=== PATIENT | female | born 1950 | race Caucasian/White ===

== ENCOUNTER 2020-02-17 20:40 | Inpatient (IN) ==
[2020-02-17] MEDS ORDERED: IOPAMIDOL 100 ML BOTTLE IV ONE (20:41)
[2020-02-17] MEDS ORDERED: 0.9 % SODIUM CHLORIDE 1,000 ML IV ONE ×2 (21:26→21:27)
[2020-02-17] MEDS ORDERED: ACETAMINOPHEN 325 MG TABLET PO ONE (21:26)
[2020-02-17 22:30] LABS: Prothrombin Time 13.7 sec (11.9-14.5)
[2020-02-17 22:31] LABS: Basophils # (Auto) 0.02 K/mcL (0.00-0.30); Basophils % (Auto) 0.1 % (0.0-2.0); Eosinophils # (Auto) 0.01 K/mcL (0.00-0.70); Eosinophils % (Auto) 0.1 % (0.0-7.0); Hematocrit 41.1 % (34.1-44.9); Hemoglobin 13.3 g/dL (11.2-15.7); Lymphocytes # (Auto) 0.67 K/mcL (1.50-4.80); Lymphocytes % (Auto) 3.4 % (15.5-49.0); Mean Cell Volume 89.5 fL (80.0-100.0); Mean Corpuscular HGB Conc 32.4 g/dL (31.0-36.0); Mean Platelet Volume 10.9 fL (7.4-10.4); Monocytes # (Auto) 0.86 K/mcL (0.10-0.90); Monocytes % (Auto) 4.4 % (1.0-12.0); Platelet Count 203 K/mcL (140-440); RBC 4.59 M/mcL (3.59-5.38); Red Cell Distribution Width 13.8 % (11.5-14.5); WBC 19.5 K/mcL (4.50-11.00)
[2020-02-17 22:36] LABS: ALT/SGPT 9 U/l (0-40); AST/SGOT 14 U/l (0-37); Albumin 3.7 gm/dL (3.2-5.2); Albumin/Globulin Ratio 1.1 (1.0-2.3); Alkaline Phosphatase 115 U/L (39-117); Bilirubin,Total 0.5 mg/dL (0.0-1.0); Blood Urea Nitrogen 22 mg/dl (8-23); C-Reactive Protein 8.6 mg/dl (0.0-0.8); Calcium 9.5 mg/dl (8.6-10.4); Carbon Dioxide 25 mmol/L (22-30); Chloride 102 mmol/L (96-108); Globulin 3.5 gm/dL (2.2-3.7); Glomerular Filtration Rate 94; Glucose 135 mg/dL (70-105)
[2020-02-17 22:37] LABS: Appearance,Urine CLOUDY; Bacteria,Urine MANY /hpf (0); Bilirubin,Urine NEG (NEG); Color,Urine YELLOW; Culture Indicated,Urine YES; Glucose,Urine (UA) NEGATIVE (NEG); Ketones,Urine NEG (NEG); Leukocyte Esterase,Urine 75 /uL (NEG); Nitrate,Urine NEG (NEG); Protein,Urine 100 mg/dL (NEG); Specific Gravity,Urine 1.015 (1.000-1.035); Urine Blood >=1.0 mg/dL (<0.03); Urine RBC > 182 /hpf (0-1); Urine Squamous Epithelial Cell 0 /hpf (0-4); Urine WBC 30 /hpf (0-4); Urobilinogen,Urine NEG (NEG)
[2020-02-17 22:42] LABS: Ferritin 306.5 ng/ml (30-400)
--- NOTE | 2020-02-17 23:20 | Emergency Department Note ---
Fever HPI - General Chief Complaint: Fever Stated Complaint: fever, urinary tract infection Time Seen by Provider: 02/17/20 21:25 Source: patient, EMS Mode of arrival: EMS Limitations: no limitations - History of Present Illness HPI Narrative: This patient was initially admitted with 2 visits by mistake and unfortunately I started documentation and orders on the first patient which was subsequently canceled. Please see that previous dictation/chart visit from 02/17/2020 for HPI, review of system, past histories including family medical and surgical, and initial management. Please note her 1 view portable chest x-ray is on that chart as well When reviewing this chart please read these 2 notes together as they represent only 1 visit - Related Data Home Medications Medication Instructions Recorded Confirmed Mucinex XR 12H 600 mg PO BID 08/28/17 08/28/17 acetaminophen 500 mg tablet 500 mg PO Q6H PRN 08/28/17 12/25/19 albuterol sulfate 90 mcg/actuation 2 inh INHALATION Q4H PRN g 08/28/17 02/17/20 aerosol inhaler clopidogrel 75 mg tablet 75 mg PO DAILY 08/28/17 02/17/20 docusate sodium 100 mg capsule 100 mg PO BID 08/28/17 02/17/20 gabapentin 800 mg tablet 800 mg PO TID 08/28/17 02/17/20 ondansetron HCl 4 mg tablet 4 mg PO Q4H PRN 08/28/17 08/28/17 tramadol 50 mg tablet 50 mg PO Q6H PRN 08/28/17 12/25/19 Saccharomyces boulardii 250 mg 250 mg PO DAILY cap 11/02/19 12/25/19 capsule cetirizine 10 mg tablet 5 mg PO QDAY PRN 11/02/19 12/25/19 cyanocobalamin (vitamin B-12) 1,000 mcg SUBLINGUAL PRN PRN 11/02/19 12/25/19 1,000 mcg sublingual tablet rosuvastatin 10 mg tablet 10 mg PO DAILY 11/02/19 02/17/20 trazodone 50 mg tablet 100 mg PO QHS 11/02/19 02/17/20 Aspirin [Lo-Dose Aspirin EC] 81 mg PO DAILY 12/25/19 02/17/20 Cholecalciferol (Vitamin D3) 20 mcg PO DAILY 12/25/19 12/25/19 [Vitamin D3] DULoxetine HCL [Cymbalta] 60 mg PO DAILY 12/25/19 12/25/19 Ipratropium 0.03% Nasal [place] 2 spray [place]ORGAN TID PRN 12/25/19 12/25/19 [Atrovent 0.03% Nasal [place]] Magnesium Hydroxide [Milk of 30 ml PO DAILYP PRN 12/25/19 12/25/19 Magnesia] Montelukast [Singular] 10 mg PO PRN PRN 12/25/19 12/25/19 levETIRAcetam [Keppra] 1,000 mg PO BID 12/25/19 02/17/20 Lansoprazole [Prevacid] 15 mg PO QDAY 02/17/20 02/17/20 busPIRone [Buspar] 5 mg PO DAILY 02/17/20 02/17/20 Allergies Allergy/AdvReac Type Severity Reaction Status Date / Time Penicillins Allergy Severe rash and Verified 02/17/20 20:49 hives levofloxacin [From Levaquin] Allergy Intermediate affected Verified 02/17/20 20:49 her muscles zinc AdvReac Mild sores in Verified 02/17/20 20:49 her mouth sulfa Allergy Unknown Unknown Uncoded 12/25/19 10:17 Fever PMH - Past Medical History Medical history: Reports: COPD, CVA (With hemiparesis), GERD, hyperlipidemia, h ypertension, seizures - Social History smoking status: Current every day smoker Physical Exam Limitations: no limitations Course Vital Signs Temperature 102.3 F H 02/17/20 20:45 Pulse Rate 120 H 02/17/20 20:45 Respiratory Rate 24 H 02/17/20 20:45 Blood Pressure 171/92 02/17/20 20:45 Pulse Oximetry (%) 90 02/17/20 20:45 Temperature 100.4 F H 02/18/20 00:16 Pulse Rate 83 02/18/20 00:16 Respiratory Rate 22 02/18/20 00:16 Blood Pressure 124/57 02/18/20 00:16 Pulse Oximetry (%) 100 02/18/20 00:16 Fever - Lab Data Lab results reviewed: Yes I reviewed the patient's lab results. Result diagrams: 02/17/20 21:21 02/17/20 21:21 Lab Results 02/17/20 02/17/2020 Range/Units 21:15 21:21 21:21 WBC 19.5 H (4.50-11.00) K/mcL RBC 4.59 (3.59-5.38) M/mcL Hgb 13.3 (11.2-15.7) g/dL Hct 41.1 (34.1-44.9) % MCV 89.5 (80.0-100.0) fL MCH 29.0 (26.0-34.0) pg MCHC 32.4 (31.0-36.0) g/dL RDW 13.8 (11.5-14.5) % Plt Count 203 (140-440) K/mcL MPV 10.9 H (7.4-10.4) fL Gran % 92.0 H (38.0-78.0) % Lymph % (Auto) 3.4 L (15.5-49.0) % [place] % (Auto) 4.4 (1.0-12.0) % Eos % (Auto) 0.1 (0.0-7.0) % Baso % (Auto) 0.1 (0.0-2.0) % Gran # 17.94 H (1.80-8.00) K/mcL Lymph # (Auto) 0.67 L (1.50-4.80) K/mcL [place] # (Auto) 0.86 (0.10-0.90) K/mcL Eos # (Auto) 0.01 (0.00-0.70) K/mcL Baso # (Auto) 0.02 (0.00-0.30) K/mcL PT (11.9-14.5) sec INR (0.9-1.1) D-Dimer (0.00-0.40) ug/ml VBG Lactic Acid (0.5-2.0) mmol/L Sodium 140 (133-145) mmol/L Potassium 3.9 (3.3-5.1) mmol/L Chloride 102 (96-108) mmol/L Carbon Dioxide 25 (22-30) mmol/L Anion Gap 13.0 (8-16) BUN 22 (8-23) mg/dl Creatinine 0.6 (0.6-1.1) mg/dl GFR Calculation 94 Glucose 135 H (70-105) mg/dL Calcium 9.5 (8.6-10.4) mg/dl Ferritin 306.5 (30-400) ng/ml Total Bilirubin 0.5 (0.0-1.0) mg/dL AST 14 (0-37) U/l ALT 9 (0-40) U/l Alkaline Phosphatase 115 (39-117) U/L Troponin T (0-0.03) ng/ml C-Reactive Protein 8.6 H (0.0-0.8) mg/dl Total Protein 7.2 (5.9-8.4) gm/dL Albumin 3.7 (3.2-5.2) gm/dL Globulin 3.5 (2.2-3.7) gm/dL Albumin/Globulin Ratio 1.1 (1.0-2.3) Lipase < 7 L (7-60) U/L Urine Color Yellow Urine Appearance Cloudy Urine pH 6.0 (5.0-9.0) Ur Specific [place] 1.015 (1.000-1.035) Urine Protein 100 A (NEG) mg/dL Urine Glucose (UA) Negative (NEG) mg/dL Urine Ketones Neg (NEG) mg/dL Urine Occult Blood >=1.0 A (<0.03) mg/dL Urine Nitrate Neg (NEG) Urine Bilirubin Neg (NEG) mg/dL Urine Urobilinogen Neg (NEG) mg/dL Ur Leukocyte Esterase 75 A (NEG) /uL Urine RBC > 182 H (0-1) /hpf Urine WBC 30 H (0-4) /hpf Ur Squamous Epith Cells 0 (0-4) /hpf Urine Bacteria Many A (0) /hpf Ur Culture Indicated? Yes 02/17/20 02/17/20 02/17/20 Range/Units 21:21 21:21 21:38 WBC (4.50-11.00) K/mcL RBC (3.59-5.38) M/mcL Hgb (11.2-15.7) g/dL Hct (34.1-44.9) % MCV (80.0-100.0) fL MCH (26.0-34.0) pg MCHC (31.0-36.0) g/dL RDW (11.5-14.5) % Plt Count (140-440) K/mcL MPV (7.4-10.4) fL Gran % (38.0-78.0) % Lymph % (Auto) (15.5-49.0) % [place] % (Auto) (1.0-12.0) % Eos % (Auto) (0.0-7.0) % Baso % (Auto) (0.0-2.0) % Gran # (1.80-8.00) K/mcL Lymph # (Auto) (1.50-4.80) K/mcL [place] # (Auto) (0.10-0.90) K/mcL Eos # (Auto) (0.00-0.70) K/mcL Baso # (Auto) (0.00-0.30) K/mcL PT (11.9-14.5) sec INR (0.9-1.1) D-Dimer 3.64 H (0.00-0.40) ug/ml VBG Lactic Acid 1.0 (0.5-2.0) mmol/L Sodium (133-145) mmol/L Potassium (3.3-5.1) mmol/L Chloride (96-108) mmol/L Carbon Dioxide (22-30) mmol/L Anion Gap (8-16) BUN (8-23) mg/dl Creatinine (0.6-1.1) mg/dl GFR Calculation Glucose (70-105) mg/dL Calcium (8.6-10.4) mg/dl Ferritin (30-400) ng/ml Total Bilirubin (0.0-1.0) mg/dL AST (0-37) U/l ALT (0-40) U/l Alkaline Phosphatase (39-117) U/L Troponin T < 0.01 (0-0.03) ng/ml C-Reactive Protein (0.0-0.8) mg/dl Total Protein (5.9-8.4) gm/dL Albumin (3.2-5.2) gm/dL Globulin (2.2-3.7) gm/dL Albumin/Globulin Ratio (1.0-2.3) Lipase (7-60) U/L Urine Color Urine Appearance Urine pH (5.0-9.0) Ur Specific [place] (1.000-1.035) Urine Protein (NEG) mg/dL Urine Glucose (UA) (NEG) mg/dL Urine Ketones (NEG) mg/dL Urine Occult Blood (<0.03) mg/dL Urine Nitrate (NEG) Urine Bilirubin (NEG) mg/dL Urine Urobilinogen (NEG) mg/dL Ur Leukocyte Esterase (NEG) /uL Urine RBC (0-1) /hpf Urine WBC (0-4) /hpf Ur Squamous Epith Cells (0-4) /hpf Urine Bacteria (0) /hpf Ur Culture Indicated? 02/17/20 Range/Units 21:38 WBC (4.50-11.00) K/mcL RBC (3.59-5.38) M/mcL Hgb (11.2-15.7) g/dL Hct (34.1-44.9) % MCV (80.0-100.0) fL MCH (26.0-34.0) pg MCHC (31.0-36.0) g/dL RDW (11.5-14.5) % Plt Count (140-440) K/mcL MPV (7.4-10.4) fL Gran % (38.0-78.0) % Lymph % (Auto) (15.5-49.0) % [place] % (Auto) (1.0-12.0) % Eos % (Auto) (0.0-7.0) % Baso % (Auto) (0.0-2.0) % Gran # (1.80-8.00) K/mcL Lymph # (Auto) (1.50-4.80) K/mcL [place] # (Auto) (0.10-0.90) K/mcL Eos # (Auto) (0.00-0.70) K/mcL Baso # (Auto) (0.00-0.30) K/mcL PT 13.7 (11.9-14.5) sec INR 1.0 (0.9-1.1) D-Dimer (0.00-0.40) ug/ml VBG Lactic Acid (0.5-2.0) mmol/L Sodium (133-145) mmol/L Potassium (3.3-5.1) mmol/L Chloride (96-108) mmol/L Carbon Dioxide (22-30) mmol/L Anion Gap (8-16) BUN (8-23) mg/dl Creatinine (0.6-1.1) mg/dl GFR Calculation Glucose (70-105) mg/dL Calcium (8.6-10.4) mg/dl Ferritin (30-400) ng/ml Total Bilirubin (0.0-1.0) mg/dL AST (0-37) U/l ALT (0-40) U/l Alkaline Phosphatase (39-117) U/L Troponin T (0-0.03) ng/ml C-Reactive Protein (0.0-0.8) mg/dl Total Protein (5.9-8.4) gm/dL Albumin (3.2-5.2) gm/dL Globulin (2.2-3.7) gm/dL Albumin/Globulin Ratio (1.0-2.3) Lipase (7-60) U/L Urine Color Urine Appearance Urine pH (5.0-9.0) Ur Specific [place] (1.000-1.035) Urine Protein (NEG) mg/dL Urine Glucose (UA) (NEG) mg/dL Urine Ketones (NEG) mg/dL Urine Occult Blood (<0.03) mg/dL Urine Nitrate (NEG) Urine Bilirubin (NEG) mg/dL Urine Urobilinogen (NEG) mg/dL Ur Leukocyte Esterase (NEG) /uL Urine RBC (0-1) /hpf Urine WBC (0-4) /hpf Ur Squamous Epith Cells (0-4) /hpf Urine Bacteria (0) /hpf Ur Culture Indicated? - Radiology Data Radiology results reviewed: Yes I reviewed the patient's radiology results. Chest x-ray shows no acute cardiopulmonary disease Disposition Pt seen by [facility] only: No Clinical Impression: Hypoxia, Kidney stone on right side UTI (urinary tract infection) Qualifiers: Urinary tract infection type: acute cystitis Hematuria presence: with hematuria Qualified Code(s): N30.01 - Acute cystitis with hematuria Summary: See other note for initial management and work-up. Laboratory shows elevated leukocytosis at 19.5. She also has evidence of severe urinary tract infection. Will start Rocephin because she is allergic to penici llins and levofloxacin as well as sulfa. Her mcc called to report that she had right lower quadrant pain earlier today; also she has had a fever. She had elevated d-dimer so CT scan of the chest abdomen and pelvis with contrast is ordered Chest abdomen and pelvis CT were unrevealing except for a 1.4 cm renal pelvis stone on the right-which is partially obstructing causing mild right h ydronephrosis. This does not really fit with her pain pattern but may account for some of the blood in her urine, and may or may not be related to her UTI We initially gave her 1 g of Rocephin for UTI but after discussion with hospitalist we will give her another gram. This does look like a complicated UTI. Discussed the case with Dr. Alejo, hospitalist. He agreed to accept the patient for further care and evaluation. I will write holding orders I briefly also discussed the results of her studies with the patient Disposition: Xfer As Inpt ([facility]) Condition: Fair Referrals: Tramaine Campbell DO [Primary Care Provider] -
[2020-02-17] MEDS ORDERED: cefTRIAXone 1 GM VIAL IV ONE (23:24)
[2020-02-18] MEDS ORDERED: cefTRIAXone 1 GM VIAL IV ONE (01:08)
[2020-02-18] MEDS ORDERED: ONDANSETRON 4 MG/2 ML VIAL IV PRN ×2 (01:13→08:09)
[2020-02-18] MEDS ORDERED: 0.9 % SODIUM CHLORIDE 1,000 ML IV SCH (01:15)
[2020-02-18] MEDS ORDERED: ACETAMINOPHEN 325 MG TABLET PO PRN (04:02)
[2020-02-18] MEDS ORDERED: BISACODYL 10 MG SUPP.RECT PR PRN (08:09)
[2020-02-18] MEDS ORDERED: ONDANSETRON 4 MG ODT TABLET SL PRN (08:09)
[2020-02-18] MEDS ORDERED: MAGNESIUM SULFATE 2 GM/50 ML BAG IV PRN (08:09)
[2020-02-18] MEDS ORDERED: POTASSIUM CHLORIDE 20 MEQ PACKET PO PRN (08:09)
[2020-02-18] MEDS ORDERED: POLYETHYLENE GLYCOL 3350 17 GM PACKET PO PRN (08:09)
[2020-02-18] MEDS ORDERED: MELATONIN 3 MG TABLET PO PRN (08:09)
--- NOTE | 2020-02-18 08:18 | Internal Med History&Physical ---
Medical - H&P: [facility] Patient information: Note initiated : 02/18/20 at 8:15 am Service Date, if different from initiated Date: [] Patient: Ema Lemos a 69 y/o F admitted on 02/18/20 for Fever, Urinary Tract Infection. Chief Complaint: [] Chief complaint: Fever and shortness of breath History of present illness: Ms. Lemos is a 69 year old F resident at [facility] with a history of COPD/seizure disorder/HTN/right MCA CVA who presents to the ER with symptoms of increasing weakness, fever, fatigue and dyspnea that has progressed over the last few days. Symptoms are associated with extreme weakness and exhaustion. With concerns of overall decline in general status she was referred to [facility] ER for evaluation. Initial work-up was consistent with severe sepsis along with pyuria. Patient started on antibiotic coverage. Patient has a history of recurrent urine tract infection multiple times a year. CT revealed nephrolithiasis. Hospital service was consulted after blood cultures were drawn At the time evaluation patient is fatigued lethargic was able to answer most of the questions. She denies abdominal pain/diarrhea endorses some nausea/weakness and dizziness. She further denies chest pain, joint pain, rash. She further denies changes in medications. Review of systems A 10 point review system was performed and is negative except for ones discussed above Medical - H&P: PMH Medical history: Convulsions (Chronic) Hyperlipemia (Chronic) Insomnia (Chronic) Incomplete bladder emptying (Chronic) Muscle weakness (generalized) (Chronic) Pain in left foot (Chronic) Sprain of calcaneofibular ligament of left ankle, subsequent encounter (Chronic) Sprain of tarsal ligament of left foot, subsequent encounter (Chronic) Nondisplaced transverse fracture of shaft of left fibula, sequela (Chronic) Urine retention (Chronic) Dysphagia (Chronic) Arrhythmia (Chronic) Ambulatory dysfunction (Chronic) Obesity (Chronic) Cervical spine pain (Chronic) Chronic insomnia (Chronic) Constipation (Chronic) GERD (gastroesophageal reflux disease) (Chronic) Hip pain, left (Chronic) Chronic low back pain (Chronic) HTN (hypertension) (Chronic) COPD (chronic obstructive pulmonary disease) (Chronic) Lumbar disc herniation with radiculopathy (Chronic) Hemiparesis (Chronic) Carotid stenosis, right (Chronic) History of right MCA stroke (Chronic) Lumbago (Chronic) Costochondritis (Chronic) IBS (irritable bowel syndrome) (Chronic) Stroke (Chronic) Neurogenic bladder (Chronic) Past Surgical History H/O shoulder surgery (Chronic) H/O: hysterectomy (Chronic) Hx of tonsillectomy (Chronic) Medical history: Reports: COPD, CVA (With hemiparesis), GERD, hyperlipidemia, hypertension, seizures Surgical history ED: Reports: carotid endarterectomy, cholecystectomy, hysterectomy, orthopedic, other (Shoulder), tonsillectomy - Social History smoking status: Current every day smoker Medical - H&P: Meds Home Medications Medication Instructions Recorded Confirmed Type clopidogrel 75 mg tablet 75 mg PO DAILY 08/28/17 02/17/20 History docusate sodium 100 mg capsule 100 mg PO BID 08/28/17 02/17/20 History gabapentin 800 mg tablet 800 mg PO TID 08/28/17 02/17/20 History ondansetron HCl 4 mg tablet 8 mg PO Q8HP PRN 08/28/17 02/18/20 History tramadol 50 mg tablet 50 mg PO BIDP PRN 08/28/17 02/18/20 History Saccharomyces boulardii 250 mg 250 mg PO DAILY cap 11/02/19 02/18/20 History capsule cetirizine 10 mg tablet 10 mg PO QDAY 11/02/19 02/18/20 History rosuvastatin 10 mg tablet 10 mg PO DAILY 11/02/19 02/17/20 History trazodone 50 mg tablet 50 mg PO QHS 11/02/19 02/18/20 History Aspirin [Lo-Dose Aspirin EC] 81 mg PO DAILY 12/25/19 02/17/20 History DULoxetine HCL [Cymbalta] 60 mg PO DAILY 12/25/19 02/18/20 History Magnesium Hydroxide [Milk of 30 ml PO BIDP PRN 12/25/19 02/18/20 History Magnesia] Montelukast [Singular] 10 mg PO DAILY 12/25/19 02/18/20 History levETIRAcetam [Keppra] 1,000 mg PO BID 12/25/19 02/17/20 History Lansoprazole [Prevacid] 15 mg PO QDAY 02/17/20 02/17/20 History busPIRone [Buspar] 5 mg PO DAILY 02/17/20 02/17/20 History Acetaminophen [Tylenol] 650 mg PO QID MDD 3000 02/18/20 02/18/20 History Acetaminophen/Diphenhydramine 1 tab PO HSP MDD 3000 02/18/20 02/18/20 History [Tylenol Pm] Albuterol Sulfate [Ventolin] 2 puff INH Q4HP PRN 02/18/20 02/18/20 History Albuterol Sulfate [Ventolin] 2.5 mg NEB Q4HP PRN 02/18/20 02/18/20 History Albuterol Sulfate [Ventolin] 2.5 mg NEB QID 02/18/20 02/18/20 History Bisacodyl [Dulcolax] 10 mg PO DAILYP PRN 02/18/20 02/18/20 History Bisacodyl [Dulcolax] 10 mg [place] DAILYP PRN 02/18/20 02/18/20 History Cranberry Fruit Concentrate 450 mg PO DAILY 02/18/20 02/18/20 History [Cranberry] Cyanocobalamin (Vitamin B-12) 1,000 mcg PO DAILY 02/18/20 02/18/20 History [Vitamin B-12] Loperamide [Imodium] 2 mg PO Q6HP PRN 02/18/20 02/18/20 History Mineral Oil [Mineral Oil Enema] 1 dose [place] DAILYP PRN 02/18/20 02/18/20 History Na Phos,M-B/Na Phos,Di-Ba [Fleet 118 ml [place] PRN PRN 02/18/20 02/18/20 History Enema Extra] Petrolatum,White [Petroleum Jelly] 1 applic TOPICAL TID 02/18/20 02/18/20 History Vitamin D3 1,000 unit PO DAILY 02/18/20 02/18/20 History Allergies Allergy/AdvReac Type Severity Reaction Status Date / Time Penicillins Allergy Mild rash and Verified 02/18/20 06:44 hives Sulfa (Sulfonamide Allergy Unknown Unknown Verified 02/18/20 06:44 Antibiotics) levofloxacin [From Levaquin] AdvReac Intermediate affected Verified 02/18/20 06:44 her muscles zinc AdvReac Mild sores in Verified 02/17/20 20:49 her mouth Medical - H&P: Exam - Constitutional Vitals: Temp Pulse Resp BP Pulse Ox 101.4 F H 111 H 24 H 167/98 94 02/18/20 04:53 02/18/20 04:26 02/18/20 04:23 02/18/20 04:23 02/18/20 05:50 General appearance: no acute distress, obese Exam: Head normocephalic Oral cavity dry No ear nose discharge stuttering speech with prior MCA CVA Neck lymphadenopathy Eye movement symmetrical S1-S2 occasionally irregular Nonlabored breathing Abdomen nondistended nontender Lower extremity no sinus clubbing Skin no suspicious lesion Psych anxious and lethargic Neuro consistent with prior neurological deficit from CVA, no acute changes Medical - H&P: Reslt - Labs CBC & Chem 7: 02/19/20 04:30 02/19/20 04:30 Labs: Short CBC 02/17/20 Range/Units 21:21 WBC 19.5 H (4.50-11.00) K/mcL Hgb 13.3 (11.2-15.7) g/dL Hct 41.1 (34.1-44.9) % Plt Count 203 (140-440) K/mcL BMP 02/17/20 21:21 Sodium 140 Potassium 3.9 Chloride 102 Carbon Dioxide 25 BUN 22 Creatinine 0.6 Glucose 135 H Calcium 9.5 Cardiac Enzymes 02/17/20 Range/Units 21:21 Troponin T < 0.01 (0-0.03) ng/ml Liver Function 02/17/20 Range/Units 21:21 Total Bilirubin 0.5 (0.0-1.0) mg/dL AST 14 (0-37) U/l ALT 9 (0-40) U/l Alkaline Phosphatase 115 (39-117) U/L Albumin 3.7 (3.2-5.2) gm/dL Urine 02/17/20 Range/Units 21:15 Urine Color Yellow Urine Appearance Cloudy Urine pH 6.0 (5.0-9.0) Ur Specific [place] 1.015 (1.000-1.035) Urine Protein 100 A (NEG) mg/dL Urine Glucose (UA) Negative (NEG) mg/dL Medical - H&P: A/P (1) Complicated UTI (urinary tract infection) Current visit: Yes Status: Acute * Complicated UTI-broad antibiotic coverage. De-escalate based on cultures * Sepsis with white count 19.5. Continue management guidelines. Vasopressors if indicated to maintain map goal * Nephrolithiasis 1.9 cm right pelvis. Urology consult * Hyperlipidemia continue statin * Seizure disorder continue gabapentin/Keppra * Anxiety disorder continue home dose BuSpar/duloxetine * Neuropathy restart home medications * History of CVA on Plavix/statin * History of COPD continue bronchodilators * Seasonal allergy disorder * Full code * Prophylaxis heparin Plan * Inpatient admission * Antibiotic coverage * Urology consult for nephrolithiasis as outpatient * Pancultures * Pre-existing medical condition management as above * PT OT nutrition support Medical - H&P: Qual - VTE Deep Vein Thrombosis/Pulmonary Embolism Present on Admission: No
[2020-02-18] MEDS: DOCUSATE SODIUM 100 MG CAPSULE PO SCH ×3 (09:15→20:40)
[2020-02-18] MEDS: HEPARIN 5,000 UNIT/ML VIAL SQ SCH ×2 (09:15→20:39)
[2020-02-18] MEDS: MULTIVIT,THER IRON,CA,FA & MIN 1 TABLET PO SCH (09:15)
[2020-02-18] MEDS: 0.9 % SODIUM CHLORIDE 1,000 ML IV SCH (09:16)
[2020-02-18] MEDS ORDERED: [UNRECOGNIZED DRUG - OTHER] PO PRN (09:34)
[2020-02-18] MEDS ORDERED: ALBUTEROL SULFATE 200 PUFF INHALER INH PRN (09:34)
[2020-02-18] MEDS ORDERED: DULCOLAX 10 MG PR PRN (09:34)
[2020-02-18] MEDS ORDERED: IPRATROPIUM 0.03% NASAL SPRAY BOTTLE 30ML NAS PRN (09:34)
[2020-02-18] MEDS ORDERED: COLACE 100 MG PO PRN (09:34)
[2020-02-18] MEDS ORDERED: NON FORMULARY MEDICATION 1 DOSE MISCELL (Docusate Sodium 100 MG) PO PRN (09:34)
[2020-02-18] MEDS ORDERED: NA PHOS DI BA PR PRN (09:34)
[2020-02-18] MEDS ORDERED: ALBUTEROL SULFATE 2.5 MG INH PRN (09:34)
[2020-02-18] MEDS ORDERED: ONDANSETRON HCL 8 MG PO PRN (09:34)
[2020-02-18] MEDS ORDERED: traMADol 50 MG TABLET PO PRN (09:34)
[2020-02-18] MEDS ORDERED: LOPERAMIDE 2 MG CAPSULE PO PRN (09:34)
[2020-02-18] MEDS ORDERED: NON FORMULARY MEDICATION 1 DOSE MISCELL (Acetaminophen 650 MG) PO PRN (09:34)
[2020-02-18] MEDS ORDERED: MAGNESIUM HYDROXIDE 30 ML ORAL.SUSP PO PRN (09:34)
[2020-02-18] MEDS ORDERED: LACTULOSE 20 GM/30 ML ORAL.SOL PO PRN (09:34)
[2020-02-18] MEDS ORDERED: [UNRECOGNIZED DRUG - OTHER] PR PRN (09:34)
[2020-02-18] MEDS ORDERED: NA PHOS M B PR PRN (09:34)
[2020-02-18] MEDS: busPIRone 5 MG TABLET PO SCH (10:02)
[2020-02-18] MEDS: DULoxetine 30 MG CAPSULE PO SCH (10:02)
[2020-02-18] MEDS: ASPIRIN 81 MG TAB.CHEW PO SCH (10:02)
[2020-02-18] MEDS: GABAPENTIN 400 MG CAPSULE PO SCH ×3 (10:02→20:40)
[2020-02-18] MEDS: PANTOPRAZOLE 40 MG TABLET PO SCH (10:02)
[2020-02-18] MEDS: levETIRAcetam 500 MG TABLET PO SCH ×2 (10:03→20:39)
[2020-02-18] MEDS ORDERED: MINERAL OIL 1 DOSE ENEMA PR PRN (10:15)
[2020-02-18] MEDS: LACTOBACILLUS 1 CAPSULE PO SCH (10:49)
--- NOTE | 2020-02-18 11:00 | Cat Scan Report ---
CLINICAL INFORMATION: Elevated d-dimer, right lower quadrant pain and fever COMPARISON: Abdomen CT 12/20/2006 TECHNIQUE: Enteric contrast was utilized. 80 cc of Isovue-[id number] were injected intravenously, and 50 seconds later 2.5 mm helical slices were obtained from the lung apices through the subtrochanteric regions of the femurs. Following reconstruction, 2.5 mm sagittal, coronal and axial reformatted images were processed and reviewed at multiple windows and levels. 7 mm MIP reconstructions were obtained through the lungs to optimize nodule detection.The exam was performed using radiation dose optimization techniques including, but not limited to, automated exposure control, adjustment of the mA and/or kV according to patient size and use of iterative reconstruction technique. FINDINGS: Pulmonary parenchymal windows show moderate centrilobular emphysema featuring chronic bronchitis (elevated lung volumes with wall thickening/ dilatation of the airways) with scattered bullae in the upper lobes. There are no infiltrates or nodules. Mild subsegmental atelectasis in both posterior lower lobes. The pleural spaces are normal. Mediastinal windows of the heart is normal in size moderately heavy fibrofatty calcific plaque in the coronary arteries. The thoracic aorta is normal diameter with mild diffuse intimal thickening. The pulmonary arteries are normal diameter and well-opacified no evidence of embolus. There is no adenopathy in the mediastinal hilar or axillary regions. A 4.5 cm well-circumscribed low-attenuation mass in the right thyroid lobe is identical to a cervical spine CT from 06/26/2011 and should be considered a benign adenoma. Abdominal images show the gallbladder is surgically absent. Moderate air within the intrahepatic and common hepatic ducts, compatible prior papillotomy is unchanged from 12/20/[address] The intrahepatic and extrahepatic ducts normal in caliber. The pancreas, both adrenal glands, spleen and aorta are normal. There is a 19 x 7 mm stone in the right renal pelvis and a 2 mm stone within a right calyx. Mild right hydronephrosis appreciated. Mild thickening of the transitional epithelium the right upper collecting system, slight right renal enlargement with inhomogeneous parenchyma and stranding of perinephric fat suggestive of pyelonephritis. In the left kidney, there is an 8 mm simple cyst laterally. Urinary bladder shows moderate diffuse wall thickening and inflammation in the adjacent fat. A Aburto catheter is properly positioned. A few tiny stones seen in the dependent urinary bladder base. Hysterectomy/oophorectomy changes noted. The large bowel, appendix, small bowel and stomach are grossly normal. There is a small periumbilical hernia containing only mesenteric fat. Bone windows show no focal osseous lesions. Moderate degenerative change both hips IMPRESSION: 1. No evidence of pulmonary embolus or other acute cardiopulmonary abnormality. Moderate centrilobular emphysema. 2. 19 mm stone in the right renal pelvis with mild hydronephrosis. 3 mm nonobstructing stone mid right renal calyx. Mildly enlarged, inhomogeneous right kidney with perinephric stranding transitional epithelial thickening is suggestive of pyelonephritis. 3. Moderate wall thickening and enhancement of the urinary bladder with inflammation in the pericystic soft tissues patible with cystitis. A few tiny stones layer dependently in the urinary bladder 4. Small umbilical hernia consists only of mesenteric fat. 5. 4.5 cm sharply circumscribed benign adenoma in the right thyroid lobe - stable since since a 06/26/[address] Interpreted and Authenticated by: Tramaine Santiago 02/18/20
[2020-02-18] MEDS ORDERED: ALBUTEROL SULFATE 2.5 MG INH SCH (13:00)
[2020-02-18] MEDS: ACETAMINOPHEN 325 MG TABLET PO PRN (13:54)
[2020-02-18] MEDS: 0.9 % SODIUM CHLORIDE 10 ML SYRINGE IV SCH ×2 (13:57→22:46)
[2020-02-18] MEDS: cefTRIAXone 2 GM in DEXTROSE 5% IN WATER 50 ML IV SCH (17:16)
[2020-02-18] MEDS: ACETAMINOPHEN 650 MG/65 ML BOTTLE IV PRN ×2 (17:21→19:02)
[2020-02-18] MEDS: traZODone HCL 50 MG TABLET PO SCH (20:40)
[2020-02-18] MEDS: SENNOSIDES/DOCUSATE SODIUM 1 TAB TABLET PO SCH (20:40)
[2020-02-18] MEDS: ATORVASTATIN 20 MG TABLET PO SCH (20:40)
[2020-02-19] MEDS: ACETAMINOPHEN 650 MG/65 ML BOTTLE IV PRN ×2 (04:28→17:48)
[2020-02-19] MEDS: 0.9 % SODIUM CHLORIDE 1,000 ML IV SCH ×2 (04:50→12:21)
[2020-02-19] MEDS: 0.9 % SODIUM CHLORIDE 10 ML SYRINGE IV SCH ×3 (05:44→21:05)
[2020-02-19 05:58] LABS: Hematocrit 36.2 % (34.1-44.9); Hemoglobin 11.1 g/dL (11.2-15.7); Mean Cell Volume 93.3 fL (80.0-100.0); Mean Corpuscular HGB Conc 30.7 g/dL (31.0-36.0); Mean Platelet Volume 11.1 fL (7.4-10.4); Platelet Count 159 K/mcL (140-440); RBC 3.88 M/mcL (3.59-5.38); WBC 11.9 K/mcL (4.50-11.00)
[2020-02-19 06:16] LABS: ALT/SGPT 9 U/l (0-40); AST/SGOT 13 U/l (0-37); Albumin 2.9 gm/dL (3.2-5.2); Albumin/Globulin Ratio 0.9 (1.0-2.3); Alkaline Phosphatase 92 U/L (39-117); Bilirubin,Direct 0.2 mg/dL (0.0-0.3); Bilirubin,Total 0.5 mg/dL (0.0-1.0); Blood Urea Nitrogen 18 mg/dl (8-23); Calcium 8.8 mg/dl (8.6-10.4); Carbon Dioxide 25 mmol/L (22-30); Chloride 101 mmol/L (96-108); Globulin 3.1 gm/dL (2.2-3.7); Glomerular Filtration Rate 89; Glucose 98 mg/dL (70-105); Lactate Dehydrogenase 215 U/L (94-250); Phosphorous 2.9 mg/dL (2.7-4.5); Triglycerides 88 mg/dl (<150); Uric Acid 2.1 mg/dL (2.5-8.0)
[2020-02-19 06:38] LABS: Band Neutrophils % 3 % (0-10); Basophils % (Manual) 1 % (0-2); Lymphocytes % 9 % (15-49); Monocytes % (Manual) 8 % (1-12); Platelet Estimate NORMAL (NORMAL); RBC Morphology NORMAL (NORMAL); Segmented Neutrophils % 79 % (38-78)
[2020-02-19] MEDS: PANTOPRAZOLE 40 MG TABLET PO SCH (07:12)
--- NOTE | 2020-02-19 07:20 | General Surgery Progress Note ---
Surgical - Auxillary Note - Subjective Patient Information: Note initiated : 02/19/20 at 7:19 am Service Date, if different from initiated Date: [] Patient: Ema Lemos a 69 y/o F admitted on 02/18/20 for Fever, Urinary Tract Infection. Chief Complaint: [] please see dictated note.
--- NOTE | 2020-02-19 07:42 | Consultation ---
DATE OF CONSULTATION: 02/19/2020 REQUESTING PHYSICIAN: Alli Baker M.D. HISTORY OF PRESENT ILLNESS: The patient is a 69-year-old lady who was transferred from the long term with increasing weakness, fever and fatigue. She was noted to have a urinary infection, and final identification of the organism is still pending. She has improved since admission. Her white count has decreased from 19.5 upon admission to 11.9 now. In reviewing her history, she did have a history of recurrent infections and it appears that she was on intermittent catheterization. She saw Dr. Reagan who examined her and felt like nothing else needed to be done. She continued to have hematuria and a cystoscopy was performed by a stack supervisor who found nothing wrong. She had a CT scan upon admission and was noted to have a large stone involving the right renal pelvis. This was a 19 x 7 mm stone. There was slight hydronephrosis. PLAN: I feel at this point that this may be the source of her infections and I do feel that she has pyelonephritis, but not an obstructive pyelonephritis. Therefore, I agree with Dr. Baker's plan to continue her with antibiotics. Upon discharge we can treat her stone. She can either follow up with Dr. Reagan or myself. ERIKA:christopher Job ID: [id number] Doc ID: [id number] Delfino JUAREZ
--- NOTE | 2020-02-19 07:59 | Internal Med Progress Note ---
Medical - PN: Subj Patient information: Note initiated : 02/19/20 at 7:58 am Service Date, if different from initiated Date: [] Patient: Ema Lemos a 69 y/o F admitted on 02/18/20 for Fever, Urinary Tract Infection. Chief Complaint: [] Interval history: Ms. Lemos is a 69 year old F resident at [facility] with a history of COPD/seizure disorder/HTN/right MCA CVA who presents to the ER with symptoms of increasing weakness, fever, fatigue and dyspnea that has progressed over the last few days. Symptoms are associated with extreme weakness and exhaustion. With concerns of overall decline in general status she was referred to [facility] ER for evaluation. Initial work-up was consistent with severe sepsis along with pyuria. Patient started on antibiotic coverage. Patient has a history of recurrent urine tract infection multiple times a year. CT revealed nephrolithiasis. Hospital service was consulted after blood cultures were drawn At the time evaluation patient is fatigued lethargic was able to answer most of the questions. She denies abdominal pain/diarrhea endorses some nausea/weakness and dizziness. She further denies chest pain, joint pain, rash. She further denies changes in medications. 02/18 - Constitutional Vitals: Vital Signs Temp Pulse Resp BP Pulse Ox 101.3 F H 94 H 22 135/76 93 02/19/20 05:13 02/19/20 04:00 02/19/20 04:00 02/19/20 04:00 02/19/20 04:00 Period Temp Pulse Resp BP Sys/Love Pulse Ox Last 24 Hr 100.0 F-102.5 F 62-97 16-22 96-135/42-76 92-98 Intake and Output 02/18/20 02/19/20 02/19/20 21:59 05:59 13:59 Intake Total 570 Output Total 100 500 Balance 470 -500 Weight 211 lb Intake & Output: Intake & Output 02/18/20 02/19/20 02/19/20 21:59 05:59 13:59 Intake Total 570 Output Total 100 500 Balance 470 -500 Weight 211 lb Intake: IV 130 Oral 440 Output: Urine Catheter Amount 500 Void Amount 100 Other: Meal Lunch Percent of Meal Consumed Refused Urine Appearance Clear Urine Color Light Renate General appearance: no acute distress Exam: Alert oriented Nonlabored breathing no anxiety No telemetry events Nondistended abdomen Medical - PN: Obj Da - Labs CBC & Chem 7: 02/19/20 04:30 02/19/20 04:30 Labs: Abnormal Lab Results 02/19/20 02/19/20 02/17/20 04:30 04:30 21:38 WBC 11.9 H Hgb 11.1 L MCHC 30.7 L MPV 11.1 H Gran % Lymph % (Auto) Gran # Lymph # (Auto) Seg Neutrophils % 79 H Lymphocytes % 9 L D-Dimer 3.64 H Glucose Uric Acid 2.1 L C-Reactive Protein Albumin 2.9 L Albumin/Globulin Ratio 0.9 L Lipase Urine Protein Urine Occult Blood Ur Leukocyte Esterase Urine RBC Urine WBC Urine Bacteria 02/17/20 02/17/20 02/17/20 21:21 21:21 21:15 WBC 19.5 H Hgb MCHC MPV 10.9 H Gran % 92.0 H Lymph % (Auto) 3.4 L Gran # 17.94 H Lymph # (Auto) 0.67 L Seg Neutrophils % Lymphocytes % D-Dimer Glucose 135 H Uric Acid C-Reactive Protein 8.6 H Albumin Albumin/Globulin Ratio Lipase < 7 L Urine Protein 100 A Urine Occult Blood >=1.0 A Ur Leukocyte Esterase 75 A Urine RBC > 182 H Urine WBC 30 H Urine Bacteria Many A Meds: Medications Acetaminophen (Tylenol) 650 mg PO Q4-6HP PRN; Protocol PRN Reason: Per Pain Protocol/Fever > 101 Last Admin: 02/18/20 13:54 Dose: 650 mg Documented by: Albuterol Sulfate (Ventolin) 2 puff INH Q4HP PRN PRN Reason: Shortness of Breath Aspirin (Aspirin) 81 mg PO DAILY [facility] Last Admin: 02/18/20 10:02 Dose: 81 mg Documented by: Atorvastatin Calcium (Lipitor) 20 mg PO HS [facility] Last Admin: 02/18/20 20:40 Dose: 20 mg Documented by: Bisacodyl (Dulcolax) 10 mg [place] Q2-3DAYS PRN PRN Reason: Constipation Buspirone HCl (Buspar) 5 mg PO DAILY [facility] Last Admin: 02/18/20 10:02 Dose: 5 mg Documented by: Cetirizine HCl (Zyrtec) 10 mg PO QDAY [facility] Clopidogrel Bisulfate (Plavix) 75 mg PO DAILY [facility] Cyanocobalamin (Vitamin B-12) 1,000 mcg PO DAILY [facility] Docusate Sodium (Colace) 100 mg PO BID [facility] Last Admin: 02/18/20 19:58 Dose: Not Given Documented by: Duloxetine HCl (Cymbalta) 60 mg PO DAILY [facility] Last Admin: 02/18/20 10:02 Dose: 60 mg Documented by: Gabapentin (Neurontin) 800 mg PO TID [facility] Last Admin: 02/18/20 20:40 Dose: 800 mg Documented by: Heparin Sodium (Porcine) (Heparin) 5,000 unit SQ Q12 [facility] Last Admin: 02/18/20 20:39 Dose: 5,000 unit Documented by: Sodium Chloride (Sodium Chloride 0.9%) 1,000 mls @ 50 mls/hr IV .Q20H [facility] Stop: 02/20/20 20:14 Last Admin: 02/19/20 04:50 Dose: Not Given Documented by: Acetaminophen (Ofirmev) 650 mg in 65 mls @ 130 mls/hr IV Q6HP PRN; Protocol PRN Reason: Per Pain Protocol/Fever > 101 Last Admin: 02/19/20 04:28 Dose: 130 mls/hr Documented by: Magnesium Sulfate (Magnesium Sulfate) 2 gm in 50 mls @ 50 mls/hr IV UD PRN PRN Reason: MG = or < 1.7 Ceftriaxone Sodium 2 gm/ (Dextrose) 50 mls @ 100 mls/hr IV Q24H [facility]; Protocol Last Admin: 02/18/20 17:16 Dose: 100 mls/hr Documented by: Ipratropium [place] (Atrovent 0.03% Nasal [place]) 2 spray MORGAN Q8HP PRN PRN Reason: Respiratory distress/rhinitis Iron Carb/Multivit/Orange/Folic Acid (Multivitamin W/Minerals) 1 tab PO DAILY [facility] Last Admin: 02/18/20 09:15 Dose: 1 tab Documented by: Lactobacillus Rhamnosus (Culturelle) 1 cap PO DAILY [facility] Last Admin: 02/18/20 10:49 Dose: 1 cap Documented by: Lactulose (Cephulac) 20 gm PO BIDP PRN PRN Reason: Constipation Levetiracetam (Keppra) 1,000 mg PO BID [facility] Last Admin: 02/18/20 20:39 Dose: 1,000 mg Documented by: Loperamide HCl (Imodium) 2 mg PO Q6HP PRN PRN Reason: Diarrhea Magnesium Hydroxide (Milk Of Magnesia) 30 ml PO BIDP PRN PRN Reason: Constipation Melatonin (Melatonin 3mg Tablet) 3 mg PO HSP PRN PRN Reason: Insomnia Mineral Oil (Mineral Oil Enema) 1 dose [place] DAILYP PRN PRN Reason: Constipation Montelukast Sodium (Singular) 10 mg PO DAILY [facility] Ondansetron HCl (Zofran) 4 mg IV Q4HP PRN PRN Reason: Nausea And Vomiting Ondansetron HCl (Zofran Odt) 4 mg SL Q4-6HP PRN; Protocol PRN Reason: Nausea And Vomiting Ondansetron HCl (Zofran) 4 mg IV Q4-6HP PRN; Protocol PRN Reason: Nausea And Vomiting Pantoprazole Sodium (Protonix) 40 mg PO QAMAC [facility] Last Admin: 02/19/20 07:12 Dose: 40 mg Documented by: Cranberry Tablet 450 (Mg Tab) 1 dose PO DAILY [facility] Pneumococcal Polyvalent Vaccine (Pneumovax 23) 0.5 ml IM .ONCE ONE Stop: 02/19/20 10:01 Polyethylene Glycol (Miralax) 17 gm PO DAILYP PRN PRN Reason: Constipation Potassium Chloride (Klor-Con) 40 meq PO DAILYP PRN PRN Reason: K+ < 3.5 Senna/Docusate Sodium (Senna Plus Tablet) 1 tab PO HS [facility] Last Admin: 02/18/20 20:40 Dose: 1 tab Documented by: Sodium Chloride (Saline Flush) 10 ml IV Q8 [facility] Last Admin: 02/19/20 05:44 Dose: 10 ml Documented by: Tramadol HCl (Ultram) 50 mg PO BIDP PRN PRN Reason: pain Trazodone HCl (Desyrel) 50 mg PO QHS [facility] Last Admin: 02/18/20 20:40 Dose: 50 mg Documented by: Vitamin D (Vitamin D3) 1,000 unit PO DAILY [facility] Medical - PN: A/P - Time Spent With Patient Total time spent is greater than 50% in coordination of care (as documented) at patient's floor/unit and/or counseling patient: 25 - 35 minutes (1) Complicated UTI (urinary tract infection) Status: Acute Assessment and plan: * Complicated E. coli UTI-continue broad antibiotic coverage. * Gram-negative bacteremia-continue antibiotics and de-escalate based on culture sensitivities. * Sepsis with white count downtrending now at 11.9. Continue management guidelines. * Nephrolithiasis 1.9 cm right pelvis without significant obstruction. Urology recommends outpatient follow-up * Seizure disorder continue gabapentin/Keppra * Anxiety disorder continue home dose BuSpar/duloxetine * Neuropathy continue home medications * History of CVA/HLD on Plavix/statin * History of COPD continue bronchodilators * Full code * Prophylaxis heparin Plan * De-escalate antibiotics based on sensitivities * Urology follow-up for nephrolithiasis as outpatient * Pancultures * Pre-existing medical condition management as above * PT OT nutrition support Current Visit: Yes Medical - PN: Qual - VTE Deep Vein Thrombosis/Pulmonary Embolism Present on Admission: No
[2020-02-19] MEDS: HEPARIN 5,000 UNIT/ML VIAL SQ SCH ×2 (08:22→21:03)
[2020-02-19] MEDS: cefTRIAXone 2 GM in DEXTROSE 5% IN WATER 50 ML IV SCH (08:22)
[2020-02-19] MEDS: busPIRone 5 MG TABLET PO SCH (08:23)
[2020-02-19] MEDS: CYANOCOBALAMIN (VITAMIN B-12) 500 MCG TABLET PO SCH (08:23)
[2020-02-19] MEDS: GABAPENTIN 400 MG CAPSULE PO SCH ×3 (08:23→21:03)
[2020-02-19] MEDS: ASPIRIN 81 MG TAB.CHEW PO SCH (08:23)
[2020-02-19] MEDS: MONTELUKAST 10 MG TABLET PO SCH (08:23)
[2020-02-19] MEDS: DULoxetine 30 MG CAPSULE PO SCH (08:23)
[2020-02-19] MEDS: VITAMIN D3 1,000 UNIT TABLET PO SCH (08:23)
[2020-02-19] MEDS: DOCUSATE SODIUM 100 MG CAPSULE PO SCH ×3 (08:23→21:04)
[2020-02-19] MEDS: levETIRAcetam 500 MG TABLET PO SCH ×2 (08:23→21:03)
[2020-02-19] MEDS: LACTOBACILLUS 1 CAPSULE PO SCH (08:23)
[2020-02-19] MEDS: CLOPIDOGREL 75 MG TABLET PO SCH (08:23)
[2020-02-19] MEDS: CETIRIZINE 10 MG TABLET PO SCH (08:24)
[2020-02-19] MEDS: MULTIVIT,THER IRON,CA,FA & MIN 1 TABLET PO SCH (08:24)
[2020-02-19] MEDS: CRANBERRY 450 MG PO SCH (08:24)
[2020-02-19] MEDS ORDERED: [UNRECOGNIZED DRUG - OTHER] PO SCH (09:00)
[2020-02-19] MEDS ORDERED: PNEUMOCOCCAL 23-VAL P-SAC VAC 0.5 ML SYRINGE IM ONE (10:00)
[2020-02-19] MEDS: CEFEPIME 2 GM VIAL IV SCH (12:37)
[2020-02-19] MEDS: ACETAMINOPHEN 325 MG TABLET PO PRN (16:34)
[2020-02-19] MEDS: traZODone HCL 50 MG TABLET PO SCH (21:03)
[2020-02-19] MEDS: ATORVASTATIN 20 MG TABLET PO SCH (21:04)
[2020-02-19] MEDS: SENNOSIDES/DOCUSATE SODIUM 1 TAB TABLET PO SCH (21:04)
[2020-02-20] MEDS: CEFEPIME 2 GM VIAL IV SCH ×2 (00:31→14:23)
[2020-02-20] MEDS: 0.9 % SODIUM CHLORIDE 1,000 ML IV SCH ×2 (00:31→09:36)
[2020-02-20] MEDS: 0.9 % SODIUM CHLORIDE 10 ML SYRINGE IV SCH ×3 (04:12→22:04)
[2020-02-20 06:48] LABS: Hematocrit 34.1 % (34.1-44.9); Hemoglobin 10.6 g/dL (11.2-15.7); Mean Cell Volume 91.7 fL (80.0-100.0); Mean Corpuscular HGB Conc 31.1 g/dL (31.0-36.0); Mean Platelet Volume 11.8 fL (7.4-10.4); Platelet Count 128 K/mcL (140-440); RBC 3.72 M/mcL (3.59-5.38); Red Cell Distribution Width 13.8 % (11.5-14.5); WBC 6.6 K/mcL (4.50-11.00)
[2020-02-20 07:14] LABS: ALT/SGPT 10 U/l (0-40); AST/SGOT 19 U/l (0-37); Albumin 2.4 gm/dL (3.2-5.2); Albumin/Globulin Ratio 0.8 (1.0-2.3); Alkaline Phosphatase 91 U/L (39-117); Bilirubin,Direct < 0.2 mg/dL (0.0-0.3); Bilirubin,Total 0.3 mg/dL (0.0-1.0); Blood Urea Nitrogen 12 mg/dl (8-23); Calcium 8.3 mg/dl (8.6-10.4); Carbon Dioxide 25 mmol/L (22-30); Chloride 102 mmol/L (96-108); Globulin 3.1 gm/dL (2.2-3.7); Glomerular Filtration Rate 94; Glucose 101 mg/dL (70-105); Lactate Dehydrogenase 194 U/L (94-250); Phosphorous 2.4 mg/dL (2.7-4.5); Triglycerides 106 mg/dl (<150)
[2020-02-20] MEDS: PANTOPRAZOLE 40 MG TABLET PO SCH (07:55)
[2020-02-20 08:33] LABS: Lymphocytes % 13 % (15-49); Monocytes % (Manual) 8 % (1-12); Platelet Estimate DECREASED (NORMAL); RBC Morphology NORMAL (NORMAL); Segmented Neutrophils % 79 % (38-78)
[2020-02-20] MEDS: CYANOCOBALAMIN (VITAMIN B-12) 500 MCG TABLET PO SCH (09:25)
[2020-02-20] MEDS: DULoxetine 30 MG CAPSULE PO SCH (09:25)
[2020-02-20] MEDS: busPIRone 5 MG TABLET PO SCH (09:25)
[2020-02-20] MEDS: MULTIVIT,THER IRON,CA,FA & MIN 1 TABLET PO SCH (09:25)
[2020-02-20] MEDS: MONTELUKAST 10 MG TABLET PO SCH (09:25)
[2020-02-20] MEDS: CLOPIDOGREL 75 MG TABLET PO SCH (09:25)
[2020-02-20] MEDS: DOCUSATE SODIUM 100 MG CAPSULE PO SCH ×2 (09:25→22:04)
[2020-02-20] MEDS: CETIRIZINE 10 MG TABLET PO SCH (09:25)
[2020-02-20] MEDS: VITAMIN D3 1,000 UNIT TABLET PO SCH (09:26)
[2020-02-20] MEDS: ASPIRIN 81 MG TAB.CHEW PO SCH (09:26)
[2020-02-20] MEDS: LACTOBACILLUS 1 CAPSULE PO SCH (09:26)
[2020-02-20] MEDS: GABAPENTIN 400 MG CAPSULE PO SCH ×3 (09:26→22:03)
[2020-02-20] MEDS: HEPARIN 5,000 UNIT/ML VIAL SQ SCH ×2 (09:34→22:04)
[2020-02-20] MEDS: levETIRAcetam 500 MG TABLET PO SCH ×2 (09:34→22:04)
[2020-02-20] MEDS: CRANBERRY 450 MG PO SCH (09:35)
--- NOTE | 2020-02-20 09:47 | Internal Med Progress Note ---
Medical - PN: Subj Patient information: Note initiated : 02/20/20 at 9:44 am Service Date, if different from initiated Date: [] Patient: Ema Lemos a 69 y/o F admitted on 02/18/20 for Fever, Urinary Tract Infection. Chief Complaint: [] Interval history: Ms. Lemos is a 69 year old F resident at [facility] with a history of COPD/seizure disorder/HTN/right MCA CVA who presents to the ER with symptoms of increasing weakness, fever, fatigue and dyspnea that has progressed over the last few days. Symptoms are associated with extreme weakness and exhaustion. With concerns of overall decline in general status she was referred to [facility] ER for evaluation. Initial work-up was consistent with severe sepsis along with pyuria. Patient started on antibiotic coverage. Patient has a history of recurrent urine tract infection multiple times a year. CT revealed nephrolithiasis. Hospital service was consulted after blood cultures were drawn At the time evaluation patient is fatigued lethargic was able to answer most of the questions. She denies abdominal pain/diarrhea endorses some nausea/weakness and dizziness. She further denies chest pain, joint pain, rash. She further denies changes in medications. 02/18-patient doing well. No overnight events. White count down to 11.9. GNR bacteremia, early results reveals Proteus. Sensitivities pending. On broad antibiotic coverage. Persistent fever throughout the day with T-max 102.8. Transfer to medical floor. Covid test negative 02/19-White count down to 6.6. T-max down to 100. No overnight events. Much improved clinical status. Denies abdominal pain nausea vomiting. No concerns per staff. Tolerating diet. - Constitutional Vitals: Vital Signs Temp Pulse Resp BP Pulse Ox 100.1 F H 78 20 135/79 92 02/20/20 07:14 02/20/20 03:33 02/20/20 07:14 02/20/20 07:14 02/20/20 07:14 Period Temp Pulse Resp BP Sys/Love Pulse Ox Last 24 Hr 97.9 F-101.2 F 72-78 14-24 101-159/57-79 92-96 Intake and Output 02/19/20 02/20/20 02/20/20 21:59 05:59 13:59 Intake Total 360 1000 Output Total 850 300 Balance -490 700 Weight 216 lb 12.8 oz Intake & Output: Intake & Output 02/19/20 02/20/20 02/20/20 21:59 05:59 13:59 Intake Total 360 1000 Output Total 850 300 Balance -490 700 Weight 216 lb 12.8 oz Intake: IV 1000 Sodium Chloride 0.9% 1,000 ml @ 1000 50 mls/hr IV .Q20H [facility] Rx#: [id number] Oral 360 Output: Urine Catheter Amount 850 300 Other: Meal Dinner Percent of Meal Consumed 75% Urine Appearance Cloudy Clear Sediment Uretheral (Aburto) Clear Urine Color Dark Yellow Dark Yellow Uretheral (Aburto) Dark Yellow Urine Odor Strong Normal General appearance: no acute distress Exam: Nonlabored breathing Alert and oriented Nondistended abdomen No anxiety Medical - PN: Obj Da - Labs CBC & Chem 7: 02/20/20 05:30 02/20/20 05:30 Labs: Abnormal Lab Results 02/20/20 02/20/20 02/19/20 05:30 05:30 04:30 WBC Hgb 10.6 L MCHC Plt Count 128 L MPV 11.8 H Gran % Lymph % (Auto) Gran # Lymph # (Auto) Seg Neutrophils % 79 H Lymphocytes % 13 L D-Dimer Glucose Uric Acid 2.0 L 2.1 L Calcium 8.3 L Phosphorus 2.4 L C-Reactive Protein Total Protein 5.5 L Albumin 2.4 L 2.9 L Albumin/Globulin Ratio 0.8 L 0.9 L Lipase Urine Protein Urine Occult Blood Ur Leukocyte Esterase Urine RBC Urine WBC Urine Bacteria 02/19/20 02/17/20 02/17/20 04:30 21:38 21:21 WBC 11.9 H Hgb 11.1 L MCHC 30.7 L Plt Count MPV 11.1 H Gran % Lymph % (Auto) Gran # Lymph # (Auto) Seg Neutrophils % 79 H Lymphocytes % 9 L D-Dimer 3.64 H Glucose 135 H Uric Acid Calcium Phosphorus C-Reactive Protein 8.6 H Total Protein Albumin Albumin/Globulin Ratio Lipase < 7 L Urine Protein Urine Occult Blood Ur Leukocyte Esterase Urine RBC Urine WBC Urine Bacteria 02/17/20 02/17/20 21:21 21:15 WBC 19.5 H Hgb MCHC Plt Count MPV 10.9 H Gran % 92.0 H Lymph % (Auto) 3.4 L Gran # 17.94 H Lymph # (Auto) 0.67 L Seg Neutrophils % Lymphocytes % D-Dimer Glucose Uric Acid Calcium Phosphorus C-Reactive Protein Total Protein Albumin Albumin/Globulin Ratio Lipase Urine Protein 100 A Urine Occult Blood >=1.0 A Ur Leukocyte Esterase 75 A Urine RBC > 182 H Urine WBC 30 H Urine Bacteria Many A Meds: Medications Acetaminophen (Tylenol) 650 mg PO Q4-6HP PRN; Protocol PRN Reason: Per Pain Protocol/Fever > 101 Last Admin: 02/19/20 16:34 Dose: 650 mg Documented by: Albuterol Sulfate (Ventolin) 2 puff INH Q4HP PRN PRN Reason: Shortness of Breath Aspirin (Aspirin) 81 mg PO DAILY [facility] Last Admin: 02/20/20 09:26 Dose: 81 mg Documented by: Atorvastatin Calcium (Lipitor) 20 mg PO HS [facility] Last Admin: 02/19/20 21:04 Dose: 20 mg Documented by: Bisacodyl (Dulcolax) 10 mg [place] Q2-3DAYS PRN PRN Reason: Constipation Buspirone HCl (Buspar) 5 mg PO DAILY [facility] Last Admin: 02/20/20 09:25 Dose: 5 mg Documented by: Cefepime HCl (Maxipime) 2 gm IV Q12H [facility]; Protocol Last Admin: 02/20/20 00:31 Dose: 2 gm Documented by: Cetirizine HCl (Zyrtec) 10 mg PO QDAY [facility] Last Admin: 02/20/20 09:25 Dose: 10 mg Documented by: Clopidogrel Bisulfate (Plavix) 75 mg PO DAILY [facility] Last Admin: 02/20/20 09:25 Dose: 75 mg Documented by: Cyanocobalamin (Vitamin B-12) 1,000 mcg PO DAILY [facility] Last Admin: 02/20/20 09:25 Dose: 1,000 mcg Documented by: Docusate Sodium (Colace) 100 mg PO BID [facility] Last Admin: 02/20/20 09:25 Dose: 100 mg Documented by: Duloxetine HCl (Cymbalta) 60 mg PO DAILY [facility] Last Admin: 02/20/20 09:25 Dose: 60 mg Documented by: Gabapentin (Neurontin) 800 mg PO TID [facility] Last Admin: 02/20/20 09:26 Dose: 800 mg Documented by: Heparin Sodium (Porcine) (Heparin) 5,000 unit SQ Q12 [facility] Last Admin: 02/20/20 09:34 Dose: 5,000 unit Documented by: Sodium Chloride (Sodium Chloride 0.9%) 1,000 mls @ 50 mls/hr IV .Q20H [facility] Stop: 02/20/20 20:14 Last Admin: 02/20/20 09:36 Dose: 50 mls/hr Documented by: Acetaminophen (Ofirmev) 650 mg in 65 mls @ 130 mls/hr IV Q6HP PRN; Protocol PRN Reason: Per Pain Protocol/Fever > 101 Last Admin: 02/19/20 17:48 Dose: 130 mls/hr Documented by: Magnesium Sulfate (Magnesium Sulfate) 2 gm in 50 mls @ 50 mls/hr IV UD PRN PRN Reason: MG = or < 1.7 Ipratropium [place] (Atrovent 0.03% Nasal [place]) 2 spray MORGAN Q8HP PRN PRN Reason: Respiratory distress/rhinitis Iron Carb/Multivit/[place]/Folic Acid (Multivitamin W/Minerals) 1 tab PO DAILY [facility] Last Admin: 02/20/20 09:25 Dose: 1 tab Documented by: Lactobacillus Rhamnosus (Culturelle) 1 cap PO DAILY [facility] Last Admin: 02/20/20 09:26 Dose: 1 cap Documented by: Lactulose (Cephulac) 20 gm PO BIDP PRN PRN Reason: Constipation Levetiracetam (Keppra) 1,000 mg PO BID [facility] Last Admin: 02/20/20 09:34 Dose: 1,000 mg Documented by: Loperamide HCl (Imodium) 2 mg PO Q6HP PRN PRN Reason: Diarrhea Magnesium Hydroxide (Milk Of Magnesia) 30 ml PO BIDP PRN PRN Reason: Constipation Melatonin (Melatonin 3mg Tablet) 3 mg PO HSP PRN PRN Reason: Insomnia Mineral Oil (Mineral Oil Enema) 1 dose [place] DAILYP PRN PRN Reason: Constipation Montelukast Sodium (Singular) 10 mg PO DAILY [facility] Last Admin: 02/20/20 09:25 Dose: 10 mg Documented by: Ondansetron HCl (Zofran) 4 mg IV Q4HP PRN PRN Reason: Nausea And Vomiting Ondansetron HCl (Zofran Odt) 4 mg SL Q4-6HP PRN; Protocol PRN Reason: Nausea And Vomiting Ondansetron HCl (Zofran) 4 mg IV Q4-6HP PRN; Protocol PRN Reason: Nausea And Vomiting Pantoprazole Sodium (Protonix) 40 mg PO QAMAC [facility] Last Admin: 02/20/20 07:55 Dose: 40 mg Documented by: Cranberry Tablet 450 (Mg Tab) 1 dose PO DAILY [facility] Last Admin: 02/20/20 09:35 Dose: Not Given Documented by: Polyethylene Glycol (Miralax) 17 gm PO DAILYP PRN PRN Reason: Constipation Potassium Chloride (Klor-Con) 40 meq PO DAILYP PRN PRN Reason: K+ < 3.5 Senna/Docusate Sodium (Senna Plus Tablet) 1 tab PO HS [facility] Last Admin: 02/19/20 21:04 Dose: 1 tab Documented by: Sodium Chloride (Saline Flush) 10 ml IV Q8 [facility] Last Admin: 02/20/20 04:12 Dose: Not Given Documented by: Tramadol HCl (Ultram) 50 mg PO BIDP PRN PRN Reason: pain Trazodone HCl (Desyrel) 50 mg PO QHS [facility] Last Admin: 02/19/20 21:03 Dose: 50 mg Documented by: Vitamin D (Vitamin D3) 1,000 unit PO DAILY [facility] Last Admin: 02/20/20 09:26 Dose: 1,000 unit Documented by: Medical - PN: A/P - Time Spent With Patient Total time spent is greater than 50% in coordination of care (as documented) at patient's floor/unit and/or counseling patient: 25 - 35 minutes (1) Complicated UTI (urinary tract infection) Status: Acute Assessment and plan: * Proteus bacteremia-likely improving on antibiotic coverage. Antibiotic extended to cefepime. Await sensitivities * Complicated E. coli/Proteus UTI-continue broad antibiotic coverage. * Sepsis -clinically improved white count now down to 6.6 * Nephrolithiasis 1.9 cm right pelvis without significant hydronephrosis. Urology recommends outpatient follow-up * Seizure disorder continue gabapentin/Keppra * Anxiety disorder continue home dose BuSpar/duloxetine * Neuropathy continue home medications * History of CVA/HLD on Plavix/statin * History of COPD continue bronchodilators * Full code * Prophylaxis heparin Plan * De-escalate antibiotics based on sensitivities * Urology follow-up for nephrolithiasis as outpatient * Pre-existing medical condition management as above * PT OT nutrition support * Discharge planning Current Visit: Yes Medical - PN: Qual - VTE Deep Vein Thrombosis/Pulmonary Embolism Present on Admission: No
[2020-02-20] MEDS: ATORVASTATIN 20 MG TABLET PO SCH (22:04)
[2020-02-20] MEDS: SENNOSIDES/DOCUSATE SODIUM 1 TAB TABLET PO SCH (22:04)
[2020-02-20] MEDS: traZODone HCL 50 MG TABLET PO SCH (22:04)
[2020-02-21] MEDS: CEFEPIME 2 GM VIAL IV SCH ×2 (01:08→14:03)
[2020-02-21] MEDS: 0.9 % SODIUM CHLORIDE 10 ML SYRINGE IV SCH ×3 (04:08→21:15)
[2020-02-21 06:29] LABS: Hematocrit 27.9 % (34.1-44.9); Hemoglobin 8.7 g/dL (11.2-15.7); Mean Cell Volume 92.4 fL (80.0-100.0); Mean Corpuscular HGB Conc 31.2 g/dL (31.0-36.0); Mean Platelet Volume 11.1 fL (7.4-10.4); Platelet Count 150 K/mcL (140-440); RBC 3.02 M/mcL (3.59-5.38); Red Cell Distribution Width 13.7 % (11.5-14.5); WBC 5.1 K/mcL (4.50-11.00)
[2020-02-21 07:00] LABS: ALT/SGPT 12 U/l (0-40); AST/SGOT 20 U/l (0-37); Albumin 2.2 gm/dL (3.2-5.2); Albumin/Globulin Ratio 0.8 (1.0-2.3); Alkaline Phosphatase 90 U/L (39-117); Bilirubin,Direct < 0.2 mg/dL (0.0-0.3); Bilirubin,Total 0.4 mg/dL (0.0-1.0); Blood Urea Nitrogen 11 mg/dl (8-23); Carbon Dioxide 25 mmol/L (22-30); Chloride 105 mmol/L (96-108); Globulin 2.7 gm/dL (2.2-3.7); Glomerular Filtration Rate 99; Glucose 100 mg/dL (70-105); Lactate Dehydrogenase 184 U/L (94-250); Phosphorous 2.5 mg/dL (2.7-4.5); Triglycerides 81 mg/dl (<150)
[2020-02-21] MEDS: PANTOPRAZOLE 40 MG TABLET PO SCH (07:45)
[2020-02-21 08:13] LABS: Band Neutrophils % 1 % (0-10); Eosinophils % (Manual) 4 % (0-7); Lymphocytes % 24 % (15-49); Monocytes % (Manual) 13 % (1-12); Platelet Estimate NORMAL (NORMAL); RBC Morphology NORMAL (NORMAL); Segmented Neutrophils % 58 % (38-78)
--- NOTE | 2020-02-21 09:43 | Internal Med Progress Note ---
Medical - PN: Subj Patient information: Note initiated : 02/21/20 at 9:40 am Service Date, if different from initiated Date: [] Patient: Ema Lemos a 69 y/o F admitted on 02/18/20 for Fever, Urinary Tract Infection. Chief Complaint: [] Interval history: Ms. Lemos is a 69 year old F resident at [facility] with a history of COPD/seizure disorder/HTN/right MCA CVA who presents to the ER with symptoms of increasing weakness, fever, fatigue and dyspnea that has progressed over the last few days. Symptoms are associated with extreme weakness and exhaustion. With concerns of overall decline in general status she was referred to [facility] ER for evaluation. Initial work-up was consistent with severe sepsis along with pyuria. Patient started on antibiotic coverage. Patient has a history of recurrent urine tract infection multiple times a year. CT revealed nephrolithiasis. Hospital service was consulted after blood cultures were drawn At the time evaluation patient is fatigued lethargic was able to answer most of the questions. She denies abdominal pain/diarrhea endorses some nausea/weakness and dizziness. She further denies chest pain, joint pain, rash. She further denies changes in medications. 02/18-patient doing well. No overnight events. White count down to 11.9. GNR bacteremia, early results reveals Proteus. Sensitivities pending. On broad antibiotic coverage. Persistent fever throughout the day with T-max 102.8. Transfer to medical floor. Covid test negative 02/19-White count down to 6.6. T-max down to 100. No overnight events. Much improved clinical status. Denies abdominal pain nausea vomiting. No concerns per staff. Tolerating diet. 02/20-patient doing well. Hemoglobin 8.7. White count 5.1. Potassium at 3 on replacement. Intermittently confused but no overnight fever chills. T-max 100.1. E. coli and Proteus on cultures sensitive to cefepime. Ongoing physical therapy - Constitutional Vitals: Vital Signs Temp Pulse Resp BP Pulse Ox 99.2 F H 73 16 121/76 91 02/21/20 03:25 02/21/20 03:25 02/21/20 03:25 02/21/20 03:25 02/21/20 03:25 Period Temp Pulse Resp BP Sys/Love Pulse Ox Last 24 Hr 98.2 F-99.2 F 73-85 16-20 106-129/66-78 91-94 Intake and Output 02/20/20 02/21/20 02/21/20 21:59 05:59 13:59 Intake Total 398 297 2362 Output Total 650 Balance 690 -50 1240 Weight 222 lb 4.8 oz Intake & Output: Intake & Output 02/20/20 02/21/20 02/21/20 21:59 05:59 13:59 Intake Total 456 033 3172 Output Total 650 Balance 690 -50 1240 Weight 222 lb 4.8 oz Intake: IV 1000 Sodium Chloride 0.9% 1,000 ml @ 1000 50 mls/hr IV .Q20H [facility] Rx#: [id number] Oral 690 600 240 Output: Urine Catheter Amount 650 Other: Meal Dinner Breakfast Percent of Meal Consumed 100% 100% Feeding Ability Independent Urine Appearance Clear Uretheral (Aburto) Clear Urine Color Dark Yellow Uretheral (Aburto) Dark Yellow Urine Odor Strong General appearance: no acute distress Exam: Alert oriented Nonlabored breathing No anxiety Nondistended abdomen Medical - PN: Obj Da - Labs CBC & Chem 7: 02/21/20 05:10 02/21/20 05:10 Labs: Abnormal Lab Results 02/21/20 02/21/20 02/20/20 05:10 05:10 05:30 WBC RBC 3.02 L Hgb 8.7 L Hct 27.9 L MCHC Plt Count MPV 11.1 H Seg Neutrophils % Lymphocytes % Monocytes % (Manual) 13 H Potassium 3.0 L Creatinine 0.5 L Uric Acid 2.0 L 2.0 L Calcium 8.0 L 8.3 L Phosphorus 2.5 L 2.4 L Total Protein 4.9 L 5.5 L Albumin 2.2 L 2.4 L Albumin/Globulin Ratio 0.8 L 0.8 L 02/20/20 02/19/20 02/19/20 05:30 04:30 04:30 WBC 11.9 H RBC Hgb 10.6 L 11.1 L Hct MCHC 30.7 L Plt Count 128 L MPV 11.8 H 11.1 H Seg Neutrophils % 79 H 79 H Lymphocytes % 13 L 9 L Monocytes % (Manual) Potassium Creatinine Uric Acid 2.1 L Calcium Phosphorus Total Protein Albumin 2.9 L Albumin/Globulin Ratio 0.9 L Meds: Medications Acetaminophen (Tylenol) 650 mg PO Q4-6HP PRN; Protocol PRN Reason: Per Pain Protocol/Fever > 101 Last Admin: 02/19/20 16:34 Dose: 650 mg Documented by: Albuterol Sulfate (Ventolin) 2 puff INH Q4HP PRN PRN Reason: Shortness of Breath Aspirin (Aspirin) 81 mg PO DAILY [facility] Last Admin: 02/20/20 09:26 Dose: 81 mg Documented by: Atorvastatin Calcium (Lipitor) 20 mg PO HS [facility] Last Admin: 02/20/20 22:04 Dose: 20 mg Documented by: Bisacodyl (Dulcolax) 10 mg ID Q2-3DAYS PRN PRN Reason: Constipation Buspirone HCl (Buspar) 5 mg PO DAILY [facility] Last Admin: 02/20/20 09:25 Dose: 5 mg Documented by: Cefepime HCl (Maxipime) 2 gm IV Q12H [facility]; Protocol Last Admin: 02/21/20 01:08 Dose: 2 gm Documented by: Cetirizine HCl (Zyrtec) 10 mg PO QDAY [facility] Last Admin: 02/20/20 09:25 Dose: 10 mg Documented by: Clopidogrel Bisulfate (Plavix) 75 mg PO DAILY [facility] Last Admin: 02/20/20 09:25 Dose: 75 mg Documented by: Cyanocobalamin (Vitamin B-12) 1,000 mcg PO DAILY [facility] Last Admin: 02/20/20 09:25 Dose: 1,000 mcg Documented by: Docusate Sodium (Colace) 100 mg PO BID [facility] Last Admin: 02/20/20 22:04 Dose: 100 mg Documented by: Duloxetine HCl (Cymbalta) 60 mg PO DAILY [facility] Last Admin: 02/20/20 09:25 Dose: 60 mg Documented by: Gabapentin (Neurontin) 800 mg PO TID [facility] Last Admin: 02/20/20 22:03 Dose: 800 mg Documented by: Heparin Sodium (Porcine) (Heparin) 5,000 unit SQ Q12 [facility] Last Admin: 02/20/20 22:04 Dose: 5,000 unit Documented by: Acetaminophen (Ofirmev) 650 mg in 65 mls @ 130 mls/hr IV Q6HP PRN; Protocol PRN Reason: Per Pain Protocol/Fever > 101 Last Admin: 02/19/20 17:48 Dose: 130 mls/hr Documented by: Magnesium Sulfate (Magnesium Sulfate) 2 gm in 50 mls @ 50 mls/hr IV UD PRN PRN Reason: MG = or < 1.7 Ipratropium [place] (Atrovent 0.03% Nasal [place]) 2 spray MORGAN Q8HP PRN PRN Reason: Respiratory distress/rhinitis Iron Carb/Multivit/Clear Coat Sprayer/Folic Acid (Multivitamin W/Minerals) 1 tab PO DAILY [facility] Last Admin: 02/20/20 09:25 Dose: 1 tab Documented by: Lactobacillus Rhamnosus (Culturelle) 1 cap PO DAILY [facility] Last Admin: 02/20/20 09:26 Dose: 1 cap Documented by: Lactulose (Cephulac) 20 gm PO BIDP PRN PRN Reason: Constipation Levetiracetam (Keppra) 1,000 mg PO BID [facility] Last Admin: 02/20/20 22:04 Dose: 1,000 mg Documented by: Loperamide HCl (Imodium) 2 mg PO Q6HP PRN PRN Reason: Diarrhea Magnesium Hydroxide (Milk Of Magnesia) 30 ml PO BIDP PRN PRN Reason: Constipation Melatonin (Melatonin 3mg Tablet) 3 mg PO HSP PRN PRN Reason: Insomnia Mineral Oil (Mineral Oil Enema) 1 dose ID DAILYP PRN PRN Reason: Constipation Montelukast Sodium (Singular) 10 mg PO DAILY [facility] Last Admin: 02/20/20 09:25 Dose: 10 mg Documented by: Ondansetron HCl (Zofran) 4 mg IV Q4HP PRN PRN Reason: Nausea And Vomiting Ondansetron HCl (Zofran Odt) 4 mg SL Q4-6HP PRN; Protocol PRN Reason: Nausea And Vomiting Ondansetron HCl (Zofran) 4 mg IV Q4-6HP PRN; Protocol PRN Reason: Nausea And Vomiting Pantoprazole Sodium (Protonix) 40 mg PO QAMAC [facility] Last Admin: 02/21/20 07:45 Dose: 40 mg Documented by: Cranberry Tablet 450 (Mg Tab) 1 dose PO DAILY [facility] Last Admin: 02/20/20 09:35 Dose: Not Given Documented by: Polyethylene Glycol (Miralax) 17 gm PO DAILYP PRN PRN Reason: Constipation Potassium Chloride (Klor-Con) 40 meq PO DAILYP PRN PRN Reason: K+ < 3.5 Potassium Chloride (Kdur) 20 meq PO BIDCC [facility] Stop: 02/24/20 17:31 Senna/Docusate Sodium (Senna Plus Tablet) 1 tab PO HS [facility] Last Admin: 02/20/20 22:04 Dose: 1 tab Documented by: Sodium Chloride (Saline Flush) 10 ml IV Q8 [facility] Last Admin: 02/21/20 04:08 Dose: Not Given Documented by: Tramadol HCl (Ultram) 50 mg PO BIDP PRN PRN Reason: pain Trazodone HCl (Desyrel) 50 mg PO QHS [facility] Last Admin: 02/20/20 22:04 Dose: 50 mg Documented by: Vitamin D (Vitamin D3) 1,000 unit PO DAILY [facility] Last Admin: 02/20/20 09:26 Dose: 1,000 unit Documented by: Medical - PN: A/P - Time Spent With Patient Total time spent is greater than 50% in coordination of care (as documented) at patient's floor/unit and/or counseling patient: 25 - 35 minutes (1) Complicated UTI (urinary tract infection) Status: Acute Assessment and plan: * Proteus/E. coli bacteremia-clinically improved. Continue cefepime * Complicated E. coli/Proteus UTI-continue cefepime based on sensitivities * Sepsis -clinically resolved * Nephrolithiasis 1.9 cm right pelvis without significant hydronephrosis. Urology recommends outpatient follow-up * Seizure disorder continue gabapentin/Keppra * Anxiety disorder continue home dose BuSpar/duloxetine * Neuropathy continue home medications * History of CVA/HLD on Plavix/statin * History of COPD continue bronchodilators * Full code * Prophylaxis heparin Plan * Continue cefepime for additional 24 hours followed by de-escalation based on final sensitivities * Urology follow-up for nephrolithiasis as outpatient * Pre-existing medical condition management as above * PT OT nutrition support * Discharge planning likely SNF in 24 hours Current Visit: Yes Medical - PN: Qual - VTE Deep Vein Thrombosis/Pulmonary Embolism Present on Admission: No
[2020-02-21] MEDS: HEPARIN 5,000 UNIT/ML VIAL SQ SCH ×2 (10:38→21:15)
[2020-02-21] MEDS: busPIRone 5 MG TABLET PO SCH (10:41)
[2020-02-21] MEDS: CETIRIZINE 10 MG TABLET PO SCH (10:42)
[2020-02-21] MEDS: GABAPENTIN 400 MG CAPSULE PO SCH ×3 (10:42→21:15)
[2020-02-21] MEDS: CLOPIDOGREL 75 MG TABLET PO SCH (10:43)
[2020-02-21] MEDS: MONTELUKAST 10 MG TABLET PO SCH (10:43)
[2020-02-21] MEDS: levETIRAcetam 500 MG TABLET PO SCH ×2 (10:44→21:15)
[2020-02-21] MEDS: DULoxetine 30 MG CAPSULE PO SCH (10:44)
[2020-02-21] MEDS: LACTOBACILLUS 1 CAPSULE PO SCH (10:46)
[2020-02-21] MEDS: ASPIRIN 81 MG TAB.CHEW PO SCH (10:46)
[2020-02-21] MEDS: MULTIVIT,THER IRON,CA,FA & MIN 1 TABLET PO SCH (10:47)
[2020-02-21] MEDS: DOCUSATE SODIUM 100 MG CAPSULE PO SCH ×2 (10:47→21:15)
[2020-02-21] MEDS: POTASSIUM CHLORIDE 20 MEQ TABLET PO SCH ×2 (11:01→17:56)
[2020-02-21] MEDS: CYANOCOBALAMIN (VITAMIN B-12) 500 MCG TABLET PO SCH (11:03)
[2020-02-21] MEDS: VITAMIN D3 1,000 UNIT TABLET PO SCH (11:05)
[2020-02-21] MEDS: CRANBERRY 450 MG PO SCH (11:05)
[2020-02-21] MEDS: SENNOSIDES/DOCUSATE SODIUM 1 TAB TABLET PO SCH (21:15)
[2020-02-21] MEDS: traZODone HCL 50 MG TABLET PO SCH (21:15)
[2020-02-21] MEDS: ATORVASTATIN 20 MG TABLET PO SCH (21:15)
[2020-02-22] MEDS: CEFEPIME 2 GM VIAL IV SCH ×2 (00:47→12:25)
[2020-02-22] MEDS: 0.9 % SODIUM CHLORIDE 10 ML SYRINGE IV SCH (06:13)
[2020-02-22 06:31] LABS: Hematocrit 28.7 % (34.1-44.9); Mean Corpuscular HGB Conc 31.4 g/dL (31.0-36.0); Mean Platelet Volume 10.5 fL (7.4-10.4); Platelet Count 165 K/mcL (140-440); RBC 3.12 M/mcL (3.59-5.38); Red Cell Distribution Width 13.7 % (11.5-14.5); WBC 5.7 K/mcL (4.50-11.00)
[2020-02-22 07:02] LABS: ALT/SGPT 25 U/l (0-40); AST/SGOT 36 U/l (0-37); Albumin 2.3 gm/dL (3.2-5.2); Albumin/Globulin Ratio 0.8 (1.0-2.3); Alkaline Phosphatase 108 U/L (39-117); Bilirubin,Direct < 0.2 mg/dL (0.0-0.3); Bilirubin,Total 0.3 mg/dL (0.0-1.0); Blood Urea Nitrogen 9 mg/dl (8-23); Calcium 8.3 mg/dl (8.6-10.4); Carbon Dioxide 28 mmol/L (22-30); Chloride 104 mmol/L (96-108); Globulin 2.9 gm/dL (2.2-3.7); Glomerular Filtration Rate 99; Glucose 101 mg/dL (70-105); Lactate Dehydrogenase 176 U/L (94-250); Phosphorous 2.7 mg/dL (2.7-4.5); Triglycerides 80 mg/dl (<150); Uric Acid 2.2 mg/dL (2.5-8.0)
[2020-02-22 07:16] LABS: Band Neutrophils % 1 % (0-10); Eosinophils % (Manual) 5 % (0-7); Lymphocytes % 33 % (15-49); Monocytes % (Manual) 7 % (1-12); Platelet Estimate NORMAL (NORMAL); RBC Morphology NORMAL (NORMAL); Segmented Neutrophils % 54 % (38-78)
[2020-02-22] MEDS: POTASSIUM CHLORIDE 20 MEQ TABLET PO SCH (07:21)
[2020-02-22] MEDS: PANTOPRAZOLE 40 MG TABLET PO SCH (07:21)
[2020-02-22] MEDS ORDERED: LEVOFLOXACIN 750 MG TABLET PO ONE (09:15)
--- NOTE | 2020-02-22 09:16 | Discharge Summary ---
Medical - DS: Prov Patient information: Note initiated : 02/22/20 at 9:13 am Service Date, if different from initiated Date: [] Patient: Ema Lemos 69 y/o F admitted on 02/18/20 for Fever, Urinary Tract Infection. Chief Complaint: [] Date of admission: 02/18/20 01:30 Discharge date: 02/22/20 Primary care physician: Tramaine Campbell Consults: 02/18/20 Consult to Physician [CONS] Stat Comment: Consulting Provider: Alli Baker Reason For Exam: Physician to Consult 02/18/20 15:18 Consult to Physician [CONS] Routine Comment: blood cultres show proteus species Consulting Provider: Delfino Bee Reason For Exam: Physician to Consult Medical - DS: Meds - Discharge Medications Prescriptions: Cefuroxime [Ceftin] 500 mg PO Q12 #10 tab Transmission Status: Pending to [facility] 2005 Active and Home Medications: Home Medications clopidogrel 75 mg tablet 75 mg PO DAILY 08/28/17 [History Confirmed 02/17/20 Last Taken 02/17/20] docusate sodium 100 mg capsule 100 mg PO BID 08/28/17 [History Confirmed 02/17/20 Last Taken 02/17/20] gabapentin 800 mg tablet 800 mg PO TID 08/28/17 [History Confirmed 02/17/20 Last Taken 02/17/20] ondansetron HCl 4 mg tablet 8 mg PO Q8HP PRN 08/28/17 [History Confirmed 02/18/20 Last Taken 02/16/20] tramadol 50 mg tablet 50 mg PO BIDP PRN 08/28/17 [History Confirmed 02/18/20 Last Taken 12/30/19 09:00] Saccharomyces boulardii 250 mg capsule 250 mg PO DAILY cap 11/02/19 [History Confirmed 02/18/20 Last Taken 02/17/20] cetirizine 10 mg tablet 10 mg PO QDAY 11/02/19 [History Confirmed 02/18/20 Last Taken 02/17/20] rosuvastatin 10 mg tablet 10 mg PO DAILY 11/02/19 [History Confirmed 02/17/20 Last Taken 02/17/20] trazodone 50 mg tablet 50 mg PO QHS 11/02/19 [History Confirmed 02/18/20 Last Taken 02/16/20] Aspirin [Lo-Dose Aspirin EC] 81 mg PO DAILY 12/25/19 [History Confirmed 02/17/20 Last Taken 02/17/20] DULoxetine HCL [Cymbalta] 60 mg PO DAILY 12/25/19 [History Confirmed 02/18/20 Last Taken 02/17/20] Magnesium Hydroxide [Milk of Magnesia] 30 ml PO BIDP PRN 12/25/19 [History Confirmed 02/18/20 Last Taken Unknown] Montelukast [Singular] 10 mg PO DAILY 12/25/19 [History Confirmed 02/18/20 Last Taken 02/17/20] levETIRAcetam [Keppra] 1,000 mg PO BID 12/25/19 [History Confirmed 02/17/20 Last Taken 02/17/20] Lansoprazole [Prevacid] 15 mg PO QDAY 02/17/20 [History Confirmed 02/17/20 Last Taken 02/17/20] busPIRone [Buspar] 5 mg PO DAILY 02/17/20 [History Confirmed 02/17/20 Last Taken 02/17/20] Acetaminophen [Tylenol] 650 mg PO QID MDD 3000 02/18/20 [History Confirmed 07/31 Last Taken Unknown] Acetaminophen/Diphenhydramine [Tylenol Pm] 1 tab PO HSP MDD 3000 02/18/20 [History Confirmed 02/18/20 Last Taken 02/16/20] Albuterol Sulfate [Ventolin] 2 puff INH Q4HP PRN 02/18/20 [History Confirmed 02/18/20 Last Taken Unknown] Albuterol Sulfate [Ventolin] 2.5 mg NEB Q4HP PRN 02/18/20 [History Confirmed 02/18/20 Last Taken Unknown] Albuterol Sulfate [Ventolin] 2.5 mg NEB QID 02/18/20 [History Confirmed 02/18/20 Last Taken Unknown] Bisacodyl [Dulcolax] 10 mg PO DAILYP PRN 02/18/20 [History Confirmed 02/18/20 Last Taken Unknown] Bisacodyl [Dulcolax] 10 mg NV DAILYP PRN 02/18/20 [History Confirmed 02/18/20 Last Taken 02/17/20] Cranberry Fruit Concentrate [Cranberry] 450 mg PO DAILY 02/18/20 [History Confirmed 02/18/20 Last Taken 02/17/20] Cyanocobalamin (Vitamin B-12) [Vitamin B-12] 1,000 mcg PO DAILY 02/18/20 [History Confirmed 02/18/20 Last Taken 02/17/20] Loperamide [Imodium] 2 mg PO Q6HP PRN 02/18/20 [History Confirmed 02/18/20 Last Taken Unknown] Mineral Oil [Mineral Oil Enema] 1 dose NV DAILYP PRN 02/18/20 [History Confirmed 02/18/20 Last Taken Unknown] Na Phos,M-B/Na Phos,Di-Ba [Fleet Enema Extra] 118 ml NV PRN PRN 02/18/20 [History Confirmed 02/18/20 Last Taken 02/17/20] Petrolatum,White [Petroleum Jelly] 1 applic TOPICAL TID 02/18/20 [History Confirmed 02/18/20 Last Taken 02/17/20] Vitamin D3 1,000 unit PO DAILY 02/18/20 [History Confirmed 02/18/20 Last Taken 02/17/20] Cefuroxime [Ceftin] 500 mg PO Q12 #10 tab 02/22/20 [Rx Last Taken Unknown] Medical - DS: Hosp Hospital Course: Discharge diagnosis * Proteus/E. coli bacteremia-clinically resolved. Transition to cefuroxime based on sensitivity for additional 5 days * Complicated E. coli/Proteus UTI- clinically resolved * Sepsis -clinically resolved * Nephrolithiasis 1.9 cm right pelvis without significant hydronephrosis. Urology recommends outpatient follow-up * Seizure disorder continue gabapentin/Keppra * Anxiety disorder continue home dose BuSpar/duloxetine * Neuropathy continue home medications * History of CVA/HLD on Plavix/statin * History of COPD continue bronchodilators Brief hospital course Ms. Lemos is a 69 year old F resident at [facility] with a history of COPD/seizure disorder/HTN/right MCA CVA who presents to the ER with symptoms of increasing weakness, fever, fatigue and dyspnea that has progressed over the last few days. Symptoms are associated with extreme weakness and exhaustion. With concerns of overall decline in general status she was referred to [facility] ER for evaluation. Initial work-up was consistent with severe sepsis along with pyuria. Patient started on antibiotic coverage. Patient has a history of recurrent urine tract infection multiple times a year. CT revealed nephrolithiasis. Hospital service was consulted after blood cultures were drawn At the time evaluation patient is fatigued lethargic was able to answer most of the questions. She denies abdominal pain/diarrhea endorses some nausea/weakness and dizziness. She further denies chest pain, joint pain, rash. She further denies changes in medications. 02/18-patient doing well. No overnight events. White count down to 11.9. GNR bacteremia, early results reveals Proteus. Sensitivities pending. On broad antibiotic coverage. Persistent fever throughout the day with T-max 102.8. Transfer to medical floor. Covid test negative 02/19-White count down to 6.6. T-max down to 100. No overnight events. Much improved clinical status. Denies abdominal pain nausea vomiting. No concerns per staff. Tolerating diet. 02/20-patient doing well. Hemoglobin 8.7. White count 5.1. Potassium at 3 on replacement. Intermittently confused but no overnight fever chills. T-max 100.1. E. coli and Proteus on cultures sensitive to cefepime. Ongoing physical therapy 02/21-E. coli/Proteus sensitive to cefuroxime. Discharge to SNF today with additional 5 days oral antibiotics. Will follow-up with urology as outpatient for nephrolithiasis. Continue prior medical condition management on home medications. Continue aggressive PT OT. Discharge diagnosis: . - Time Spent with Patient Total time spent providing and/or coordinating discharge services: Greater than 30 minutes Medical - DS: Exam - Constitutional Vitals: Vital Signs Temp Pulse Resp BP Pulse Ox 02/22/20 08:00 98.4 F 88 18 122/60 91 02/22/20 03:35 98.9 F 70 18 132/68 96 02/21/20 23:51 99.4 F H 20 125/60 91 02/21/20 20:00 99.2 F H 22 134/74 96 02/21/20 16:00 98.4 F 20 127/69 95 Intake and Output 02/21/20 02/22/20 02/22/20 21:59 05:59 13:59 Intake Total 480 480 240 Output Total 250 725 Balance 230 -245 240 Intake: Oral 480 480 240 Output: Urine Catheter Amount 250 725 Other: Meal Dinner Breakfast Percent of Meal Consumed 25% 100% Urine Appearance Clear Clear Uretheral (Aburto) Clear Urine Color Bright Yellow Dark Yellow Uretheral (Aburto) Dark Yellow Urine Odor Normal Normal Weight 224 lb 6.4 oz Medical - DS: Data Labs on day of discharge: Labs from last 24 hours 02/22/20 02/22/20 05:43 05:43 WBC 5.7 RBC 3.12 L Hgb 9.0 L Hct 28.7 L MCV 92.0 MCH 28.8 MCHC 31.4 RDW 13.7 Plt Count 165 MPV 10.5 H Total Counted 100 Seg Neutrophils % 54 Band Neutrophils % 1 Lymphocytes % 33 Monocytes % (Manual) 7 Eosinophils % (Manual) 5 Platelet Estimate Normal RBC Morphology Normal Sodium 139 Potassium 3.7 Chloride 104 Carbon Dioxide 28 Anion Gap 7.0 L BUN 9 Creatinine 0.5 L GFR Calculation 99 Glucose 101 Uric Acid 2.2 L Calcium 8.3 L Phosphorus 2.7 Magnesium 1.9 Total Bilirubin 0.3 Direct Bilirubin < 0.2 GGT 28 AST 36 ALT 25 Alkaline Phosphatase 108 Lactate Dehydrogenase 176 Total Protein 5.2 L Albumin 2.3 L Globulin 2.9 Albumin/Globulin Ratio 0.8 L Triglycerides 80 Preliminary micro results at discharge 02/17/20 20:58 Blood Culture - Preliminary Blood Proteus mirabilis 02/19/20 10:38 Blood Culture - Preliminary Blood 02/19/20 10:48 Blood Culture - Preliminary Blood 02/17/20 20:58 Blood Culture - Preliminary Blood Gram negative bacillus Medical - DS: A/P - Patient/Caregiver Discharge Instructions Activity: as per physical therapy, increase activity as tolerated Diet: Regular Diet Additional Instructions: Follow-up PCP in 5 days Follow-up urology in 2 weeks for evaluation of nephrolithiasis/mild right hydronephrosis I recommend [facility] physician to check CBC BMP UA as a posthospital follow-up in 1 week. Antibiotics for additional 5 days oral cefuroxime Continue aggressive bowel regimen to prevent constipation Continue fall precautions Continue aggressive PT OT evaluation and treatment at [facility]. ST eval and treatment if indicated High protein calorie supplements All meals on chair sitting upright at 90 degrees to prevent aspiration Return to ER if worsening fever chills shortness of breath, diarrhea, bleeding Review risk and side effect profile of medications including antibiotics. Side effect may include mild to severe reaction including rash, diarrhea, cdiff and even which can be prevented by close follow-up with PCP and monitoring for side effects Continue diet and activity as advised Discussed importance of medication adherence Please review medication list with patient prior to discharge Please schedule follow-up with PCP/Providers prior to discharge and provide printouts Prescriptions: Cefuroxime [Ceftin] 500 mg PO Q12 #10 tab Transmission Status: Pending to [facility] 2005 - Problem Maintenance (1) Complicated UTI (urinary tract infection) Status: Acute - Follow up Plan Follow up with: Tramaine Campbell DO [Primary Care Provider] - Disposition: [facility] SNF Prognosis: Fair Rehab Potential: Fair I certify that the patient requires SNF services: Yes Overall status at discharge: patient is progressing back to baseline Medical - DS: Qual - VTE Deep Vein Thrombosis/Pulmonary Embolism Present on Admission: No
[2020-02-22] MEDS ORDERED: CEFUROXIME 500 MG TABLET PO ONE (09:30)
[2020-02-22] MEDS: GABAPENTIN 400 MG CAPSULE PO SCH (09:57)
[2020-02-22] MEDS: levETIRAcetam 500 MG TABLET PO SCH (09:58)
[2020-02-22] MEDS: CLOPIDOGREL 75 MG TABLET PO SCH (09:58)
[2020-02-22] MEDS: CETIRIZINE 10 MG TABLET PO SCH (09:58)
[2020-02-22] MEDS: DULoxetine 30 MG CAPSULE PO SCH (09:59)
[2020-02-22] MEDS: DOCUSATE SODIUM 100 MG CAPSULE PO SCH (10:00)
[2020-02-22] MEDS: MONTELUKAST 10 MG TABLET PO SCH (10:00)
[2020-02-22] MEDS: VITAMIN D3 1,000 UNIT TABLET PO SCH (10:01)
[2020-02-22] MEDS: ASPIRIN 81 MG TAB.CHEW PO SCH (10:02)
[2020-02-22] MEDS: busPIRone 5 MG TABLET PO SCH (10:02)
[2020-02-22] MEDS: MULTIVIT,THER IRON,CA,FA & MIN 1 TABLET PO SCH (10:02)
[2020-02-22] MEDS: LACTOBACILLUS 1 CAPSULE PO SCH (10:03)
[2020-02-22] MEDS: CYANOCOBALAMIN (VITAMIN B-12) 500 MCG TABLET PO SCH (10:03)
[2020-02-22] MEDS: CRANBERRY 450 MG PO SCH (10:04)
[2020-02-22] MEDS: HEPARIN 5,000 UNIT/ML VIAL SQ SCH (10:05)
== END 2020-02-22 13:15 | DRG 872 ==
LOC: ED 20:40 → ICU 02-18 01:30 → MEDSUR 02-19 19:47
PROVIDERS: ADMIT Internal Medicine; ATTEND Internal Medicine